=== PATIENT | female | born 1995 | race African-American/Black ===

== ENCOUNTER 2017-09-15 11:27 | Emergency (ER) | payer MEDICAID ==
[2017-09-15 11:38] VITALS: BP 106/54
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
== END 2017-09-15 13:20 | disposition home or self-care (01) ==
LOC: UCEAST 11:27
DX: S80.212A Abrasion, left knee, initial encounter (principal); S80.211A Abrasion, right knee, initial encounter; M25.562 Pain in left knee; M25.561 Pain in right knee; V29.9XXA Motorcycle rider (driver) (passenger) injured in unspecified traffic accident, initial encounter; Y93.9 Activity, unspecified; Z91.09 Other allergy status, other than to drugs and biological substances; Y92.9 Unspecified place or not applicable
CPT/HCPCS: 99212; G0463

== ENCOUNTER 2017-12-04 14:24 | Emergency (ER) | payer MEDICAID ==
[2017-12-04 14:45] VITALS: BP 137/87
--- NOTE | 2017-12-04 15:49 | UC ---
Complaint Female HPI - HPI Summary HPI Summary: pt uses nuvaring continuously (does not skip a week). she started having vaginal bleeding 3 weeks ago and hasn't ever stopped. occasional abd cramping. is monogomous with . has not had Nuvaring in for 3 weeks - History Of Current Complaint Chief Complaint: UCGU Stated Complaint: PERSONAL Time Seen by Provider: 12/04/17 15:39 Hx Obtained From: Patient Hx Last Menstrual Period: one month ago ?: No Onset/Duration: Gradual Onset Timing: Constant Severity Initially: Mild Severity Currently: Moderate Pain Intensity: 5 Associated Signs And Symptoms: Positive: Vaginal Bleeding/Discharge - Allergies/Home Medications Allergies/Adverse Reactions: Allergies Allergy/AdvReac Type Severity Reaction Status Date / Time horse dander Allergy resp Verified 09/23/17 12:32 distress Home Medications: Home Medications Ibuprofen TAB* [Motrin TAB* 800 MG] 1 dose PO ONCE 12/04/17 [History Confirmed 12/04/17] PMH/Surg Hx/FS Hx/Imm Hx Previously Healthy: Yes - Surgical History Surgical History: Yes Surgery Procedure, Year, and Place: Sinus surgery. WISDOM TEETH - Family History Known Family History: Negative: Diabetes - Social History Occupation: Employed Full-time Lives: With Family Alcohol Use: Occasionally Substance Use Type: None Smoking Status (MU): Current Some Day Smoker - Immunization History Most Recent Influenza Vaccination: r Vaccination Up to Date: Yes Review of Systems Constitutional: Negative Skin: Negative Respiratory: Negative Cardiovascular: Negative Genitourinary: Negative Neurological: Negative All Other Systems Reviewed And Are Negative: Yes Physical Exam Triage Information Reviewed: Yes Appearance: Well-Appearing, No Pain Distress, Well-Nourished Vital Signs: Initial Vital Signs Temp 98.6 F 12/04/17 14:41 Pulse 119 12/04/17 14:41 Resp 18 12/04/17 14:41 BP 137/87 12/04/17 14:41 Pulse Ox 97 12/04/17 14:41 Vital Signs Reviewed: Yes Respiratory Exam: Normal Cardiovascular Exam: Normal Abdomen Description: Positive: Nontender, No Organomegaly, Soft Pelvic Exam: Positive: Speculum Exam Normal, Bimanual Exam Normal, Active Bleeding - small amount. Negative: Discharge, Lesions, Tender w/ Cervical Motion, Tender Adnexa Neurological Exam: Normal Psychological Exam: Normal Skin Exam: Normal Complaint Female Dx - Differential Dx/Diagnosis Differential Diagnosis/HQI/PQRI: Ectopic, Ovarian Cyst, , Sexually Transmitted Disease, Urinary Tract Infection Provider Diagnoses: vaginal bleeding Discharge - Sign-Out/Discharge Documenting (check all that apply): Patient Departure All imaging exams completed and their final reports reviewed: No Studies - Discharge Plan Condition: Good Disposition: HOME Patient Education Materials: Dysfunctional Uterine Bleeding (ED) Referrals: No Primary Care Phys,NOPCP [Primary Care Provider] - Additional Instructions: follow up with [facility] week Follow-up with cultures taken from today's exam Report to ER if symptoms worsen - Billing Disposition and Condition Condition: GOOD Disposition: Home - Attestation Statements Provider Attestation: Per institutional requirements, I have reviewed the chart, however, I was not consulted specifically or made aware of this patient by the midlevel provider. I did not personally evaluate, interact with , or disposition this patient.
--- NOTE | 2017-12-06 19:37 | UC ---
- Progress Note Progress Note: Pt with + Gardnerella sent flagyl to pharmacy please call pt and update alcohol precaution - no ETOH 72 hours before or after med Ljj 12/06/2017 7:37 Discharge - Sign-Out/Discharge Documenting (check all that apply): Post-Discharge Follow Up All imaging exams completed and their final reports reviewed: No Studies - Discharge Plan Condition: Good Disposition: HOME Prescriptions: metroNIDAZOLE [Flagyl] 500 mg PO BID #14 tablet Patient Education Materials: Dysfunctional Uterine Bleeding (ED) Referrals: No Primary Care Phys,NOPCP [Primary Care Provider] - Additional Instructions: follow [facility] with [facility] week Follow-up with cultures taken from today's exam Report to ER if symptoms worsen - Billing Disposition and Condition Condition: GOOD Disposition: Home
== END 2017-12-04 16:15 | disposition home or self-care (01) ==
LOC: UCEAST 14:24
DX: N93.9 Abnormal uterine and vaginal bleeding, unspecified (principal); Z72.0 Tobacco use
CPT/HCPCS: 81003; 84702; 87480; 87491; 87510; 87591; 87661; 99212; G0463

== ENCOUNTER 2018-06-09 15:26 | Emergency (ER) | payer MEDICAID, OTHER ==
[2018-06-09 17:00] VITALS: BP 110/60
--- NOTE | 2018-06-09 17:40 | UC ---
Respiratory Complaint HPI - HPI Summary HPI Summary: 23y/o female presents to the urgent care c/o productive cough, [place]IV[place], nasal congestion w/ green nasal discharge, body aches and chills for the past week. Pt symptoms started w/ a common cold and she has been taking Nyquil and Dayquil Po to alleviate symptoms. Pt w/ PMHX of chronic sinusitis s/p 2 sinus surgeries. She recently was Tx for sinusitis by his PCP about 2 weeks ago with Amoxicillin. Then symptoms returned. She feels now her chest is more congested associated w/ body aches, LIVINGSTON. She has used her Albuterol inhaler at night to alleviate broncospasm. Denies SOB, wheezing, abdominal pain, fever, N/V/D. - History of Current Complaint Chief Complaint: UCRespiratory Stated Complaint: COUGH Time Seen by Provider: 06/09/18 17:33 Hx Obtained From: Patient Hx Last Menstrual Period: 06/02/2018 ?: No Onset/Duration: Gradual Onset, Lasting Weeks - 1 week, Still Present, Worse Since - 3 days Timing: Intermittent Episodes Severity Initially: Mild Severity Currently: Mild Pain Intensity: 4 Pain Scale Used: 0-10 Numeric Character: Cough: Productive, Sputum Description: - green Aggravating Factors: Recumbent Position Alleviating Factors: Bronchodilator, OTC Meds Associated Signs And Symptoms: Positive: Chills, URI, Nasal Congestion, Sinus Discomfort. Negative: Dyspnea, Fever, Wheezing - Risk Factors Pulmonary Embolism Risk Factors: Negative Cardiac Risk Factors: Negative Pseudomonas Risk Factors: Negative Tuberculosis Risk Factors: Negative - Allergies/Home Medications Allergies/Adverse Reactions: Allergies Allergy/AdvReac Type Severity Reaction Status Date / Time horse dander Allergy resp Verified 06/09/18 17:00 distress Home Medications: Home Medications D-Methorphan/PE/Acetaminophen [Day Time Cold-Flu Relief Liq] 06/09/18 [History] PMH/Surg Hx/FS Hx/Imm Hx Previously Healthy: Yes Other Respiratory History: chronic sinusitis - Surgical History Surgical History: Yes Surgery Procedure, Year, and Place: Sinus surgery. WISDOM TEETH - Family History Known Family History: Positive: Hypertension, Diabetes - Social History Occupation: Employed Full-time Lives: With Family Alcohol Use: Occasionally Substance Use Type: None Smoking Status (MU): Current Some Day Smoker - Immunization History Most Recent Influenza Vaccination: r Vaccination Up to Date: Yes Review of Systems All Other Systems Reviewed And Are Negative: Yes Constitutional: Positive: Chills, Other - body aches Skin: Positive: Negative Eyes: Positive: Negative ENT: Positive: Nasal Discharge - green, Sinus Congestion, Sinus Pain/Tenderness Respiratory: Positive: Cough - productive w/ green phlegm Cardiovascular: Positive: Negative Gastrointestinal: Positive: Negative Genitourinary: Positive: Negative Motor: Positive: Negative Neurovascular: Positive: Negative Musculoskeletal: Positive: Myalgia Neurological: Positive: Headache Psychological: Positive: Negative Is Patient Immunocompromised?: No Physical Exam - Summary Physical Exam Summary: Vital Signs Reviewed: Yes General: well developed, well nourished female sitting in the examining table w/ o any apparent distress Eyes: Positive: Conjunctiva Clear - PERRLA, EOMI, fundi grossly normal ENT: Positive: Normal ENT inspection, Hearing grossly normal, Pharynx normal, Nasal congestion - edematous and erythematous nasal mucosa, Nasal drainage - yellowish drainage, TMs normal. Negative: Tonsillar swelling, Tonsillar exudate Neck: Positive: Supple, Nontender, No Lymphadenopathy Respiratory: no orthopnea or dyspnea. Able to speak in full sentences, no retractions or accessory muscle use, no tripod position, stridor, or head bobbing. Positive breath sounds bilaterally. scattered rhonchi on b/L lungs, no crackles or rales, no wheezes. Cardiovascular: Positive: RRR, No Murmur, Pulses Normal, Brisk Capillary Refill Abdomen Description: Positive: Nontender, No Organomegaly, Soft. Negative: CVA Tenderness (R), CVA Tenderness (L) Bowel Sounds: Positive: Present Musculoskeletal Exam: Normal Musculoskeletal: Positive: Strength Intact, ROM Intact, No Edema Neurological Exam: Normal Psychological Exam: Normal Skin Exam: Normal Triage Information Reviewed: Yes Vital Signs: Initial Vital Signs Temp 97.9 F 06/09/18 16:53 Pulse 76 06/09/18 16:53 Resp 18 06/09/18 16:53 BP 110/60 06/09/18 16:53 Pulse Ox 99 06/09/18 16:53 Respiratory Course/Dx - Course Course Of Treatment: 23y/o female presents to the urgent care c/o productive cough, [place]IV[place], nasal congestion w/ green nasal discharge, body aches and chills for the past week. Pt symptoms started w/ a common cold and she has been taking Nyquil and Dayquil Po to alleviate symptoms. Pt w/ PMHX of chronic sinusitis s/ p 2 sinus surgeries. She recently was Tx for sinusitis by his PCP about 2 weeks ago with Amoxicillin. Then symptoms returned. She feels now her chest is more congested associated w/ body aches, [place]. She has used her Albuterol inhaler at night to alleviate broncospasm. Denies SOB, wheezing, abdominal pain, fever, N/V /D. Hx obtained. Pt w/scattered rhonchi on b/L lungs, no crackles or rales, no wheezes on examination.Chest X-ray ordered:Impression: No acute cardiopulmonary disease observed.Pt with Acute bronchitis on examination. Pt Rx Z-michlele PO and advised to continue w/ Albuterol inhaler to alleviate bronchospasm. Pt advised to increase fluid intake and eat well. if not improvement or worsening of symptoms to return to the urgent care or f/u with PCP for further management. pt understood and agreed with plan of care. - Differential Dx/Diagnosis Differential Diagnosis/HQI/PQRI: Asthma, Bronchitis, Influenza, Lower Resp Infection, Sinusitis, Other - pneumonia Provider Diagnosis: Cough, Acute bronchitis Discharge - Sign-Out/Discharge Documenting (check all that apply): Patient Departure - d/c home All imaging exams completed and their final reports reviewed: No - Discharge Plan Condition: Stable Disposition: HOME Prescriptions: Azithromyxin MICHELLE (NF) [Z-Michelle (Zithromax) 250 mg tabs #6] 2 tab PO .TODAY, THEN 1 DAILY #6 tab Patient Education Materials: Acute Bronchitis (ED) Forms: *Work Release Referrals: Nette Wood MD [Primary Care Provider] - 3 Days Additional Instructions: 1-Please take full course of antibiotic to avoid resistance. 2-Please continue taking Dayquil PO and Nyquil PO to alleviate symptoms. Increase fluid intake, rest and eat well. 3- If symptoms do not improve or worsen or your develop SOB with fever and severe wheezing please go immediately to the ER further evaluation and treatment. 4- F/u with your PCP in 2-3 days for further management if not improvement of symptoms. - Billing Disposition and Condition Condition: STABLE Disposition: Home
[2018-06-09 18:08] LABS: Influenza A Molecular NEGATIVE (Negative); Influenza B Molecular NEGATIVE (Negative)
--- NOTE | 2018-06-10 08:14 | UC ---
- Progress Note Progress Note: CXR: IMPRESSION: #. No evidence for acute intrathoracic disease. R0 No change in plan of care Course/Dx - Diagnoses Provider Diagnoses: Cough Discharge - Sign-Out/Discharge Documenting (check all that apply): Post-Discharge Follow Up All imaging exams completed and their final reports reviewed: Yes - Discharge Plan Condition: Stable Disposition: HOME Prescriptions: Azithromyxin MICHELLE (NF) [Z-Michelle (Zithromax) 250 mg tabs #6] 2 tab PO .TODAY, THEN 1 DAILY #6 tab Patient Education Materials: Acute Bronchitis (ED) Forms: *Work Release Referrals: Nette Wood MD [Primary Care Provider] - 3 Days Additional Instructions: 1-Please take full course of antibiotic to avoid resistance. 2-Please continue taking Dayquil PO and Nyquil to alleviate symptoms. Increase fluid intake, rest and eat well. 3- If symptoms do not improve or worsen or your develop SOB with fever and severe wheezing please go immediately to the ER further evaluation and treatment. 4- F/u with your PCP in 2-3 days for further management if not improvement of symptoms. - Billing Disposition and Condition Condition: STABLE Disposition: Home
== END 2018-06-09 18:30 | disposition home or self-care (01) ==
LOC: UCEAST 15:26
DX: J20.9 Acute bronchitis, unspecified (principal); R05 Cough; R09.81 Nasal congestion; R09.89 Other specified symptoms and signs involving the circulatory and respiratory systems; R51 Headache; F17.200 Nicotine dependence, unspecified, uncomplicated; Z91.09 Other allergy status, other than to drugs and biological substances
CPT/HCPCS: 71046; 99212; G0463

== ENCOUNTER 2018-12-02 11:12 | Emergency (ER) | payer OTHER ==
--- NOTE | 2018-12-02 11:49 | ED ---
Headache - HPI Summary HPI Summary: Patient is a 23 y/o F presenting to [facility] with complaints of LIVINGSTON and nausea. She states that on 11/30/18 at around 1600, after she was getting home from work, she had onset of LIVINGSTON, stating it felt as if her head was, "splitting into pieces ". Patient thought she was dehydrated and drank water. Sx persisted, and an hour after LIVINGSTON onset, patient took some Advil. Shortly after this, the patient states she began to vomit "aggressively" and continuously. Patient went to [facility] urgent care. Per medical records, patient was given Toradol, Reglan, Benadryl, and 1 L NS. She was discharged to home and diagnosed with a migraine. The following morning, 12/01/18, patient states that she had a minor LIVINGSTON still. She took some Tylenol during the day and went to bed in the evening. This morning, , patient states that LIVINGSTON severity worsened. Patient states that the LIVINGSTON is at the top middle area of her head. No radiation of pain is noted. On triage, pain is rated 4/10. She states that she has been nauseous today but has not vomited. Patient notes onset of diarrhea this morning, 12/02/18. Patient did have soup and crackers this morning, 12/02/18. Patient notes Hx of sinus pressure headaches, but states that the location of pain for these HAs has been at the frontal area. Fever, neck pain, abdominal pain are all denied. She states that she has had increased frequency of urination, but she relates this to the increased amount of water she has been drinking. The patient otherwise denies any urinary Sx. She notes that she is photophobic and states that straining her eyes aggravates Sx. Patient is on her period currently and states that it started around a week ago. She takes Nuvaring for control. PMHx of Lyme disease and allergies is reported. She notes that she used to be on an allergy pill but is not currently as she frequently forgot to take it. FMHx of diabetes and cardiovascular disease. Mother has Hx of migraines. PSHx of sinus surgery x2 and wisdom teeth removal. Patient states she is a former smoker but smokes "socially" around once per month. Rare alcohol usage is endorsed, she denies drug usage. Vitals in room are BP 116/92, o2 100, pulse 91. Home medications and allergies are reviewed. Patient notes that she is on her phone frequently. She states she is allergic to horses. Patient's mother is with patient in room. - History Of Current Complaint Chief Complaint: EDHeadache Stated Complaint: MIGRAINE/NAUSEA PER PT Time Seen by Provider: 12/02/18 11:17 Hx Obtained From: Patient Hx Last Menstrual Period: NOW Onset/Duration: Started hours ago - diarrhea onset in morning, 12/02, Started days ago - LIVINGSTON, N/V onset 11/30, Still Present Currently Pain Is: Current Pain Scale(0-10)=, Moderate - on triage, pain rated 4 /10 Timing: Constant, Hours - diarrhea onset in morning, 12/02, Days - LIVINGSTON, N/V onset 11/30 Location of Headache: Other: - top middle area of head Radiates to: no radiation of pain Aggravating Factor: Bright Lights, Other - straining eyes Associated Signs And Symptoms: Nausea, Vomiting, Other (Noted In Comments) - positive - diarrhea, increased frequency of urination that is attributed to increased intake of water; negative - fever, neck pain, abdominal pain, urinary Sx - Allergies/Home Medications Allergies/Adverse Reactions: Allergies Allergy/AdvReac Type Severity Reaction Status Date / Time horse dander Allergy resp Verified 11/30/18 19:36 distress PMH/Surg Hx/FS Hx/Imm Hx Endocrine/Hematology History: Denies: Hx Diabetes, Hx Thyroid Disease Cardiovascular History: Denies: Hx Hypercholesterolemia, Hx Hypertension, Hx Pacemaker/ICD, Hx Peripheral Vascular Disease Respiratory History: Reports: Hx Asthma - exercise or cold induced Denies: Hx Chronic Obstructive Pulmonary Disease (COPD) GI History: Denies: Hx Ulcer History: Denies: Hx Renal Disease Musculoskeletal History: Denies: Hx Arthritis, Hx Osteoporosis Sensory History: Denies: Hx Cataracts, Hx Contacts or Glasses, Hx Glaucoma, Hx Hearing Aid Opthamlomology History: Denies: Hx Cataracts, Hx Contacts or Glasses, Hx Glaucoma Neurological History: Reports: Hx Headaches Denies: Hx Seizures, Hx Transient Ischemic Attacks (TIA) Psychiatric History: Denies: Hx Anxiety, Hx Depression, Hx Panic Disorder - Surgical History Surgery Procedure, Year, and Place: Sinus surgery x2. WISDOM TEETH REMOVAL Infectious Disease History: No Infectious Disease History: Denies: Hx Clostridium Difficile, Hx Hepatitis, Hx Human Immunodeficiency Virus (HIV), Hx of Known/Suspected MRSA, Hx Shingles, Hx Tuberculosis, Hx Known/ Suspected VRE, Hx Known/Suspected VRSA, History Other Infectious Disease, Traveled Outside the [place] in Last 30 Days - Family History Known Family History: Positive: Hypertension, Diabetes, Other - FMHx of migraines, mother - Social History Alcohol Use: Rare Substance Use Type: Reports: None Smoking Status (MU): Former Smoker Type: Cigarettes Amount Used/How Often: 1 CIG/DAY Review of Systems Negative: Fever Positive: Photophobia Positive: Vomiting, Diarrhea, Nausea. Negative: Abdominal Pain Positive: no symptoms reported - no urinary Sx reported , frequency - increased frequency of urinartion that is related to patient's increased water intake Musculoskeletal: Other - negative - neck pain Positive: Headache All Other Systems Reviewed And Are Negative: Yes Physical Exam - Summary Physical Exam Summary: General: Well-nourished, Well-nourished female. No acute distress. HEENT: Normocephalic, Atraumatic. Eyes: conjuctiva normal, PERRL. Ears: TMs within normal limits. Nares: (-) discharge, (-) erythema. Oropharynx: clear, mucous membranes moist, (-) exudates. Neck: soft, FROM, (-) lymphadenopathy, (-) thyromegaly, (-) JVD. Cardiovascular: normal sinus rhythm, (-) murmur. Respiratory: clear to auscultation bilaterally (-) wheezes, (-) rales, (-) rhonchi. Abdomen: soft, non-tender, non-distended, (-) organomegaly, normal bowel sounds. Neuro: Alert and oriented x3, no focal deficits. Extremities: no edema. Skin: warm, dry, (-) rash. Psychiatric: mood normal, affect normal. Triage Information Reviewed: Yes Vital Signs On Initial Exam: Initial Vitals Temp Pulse Resp BP Pulse Ox 98.9 F 90 16 142/85 100 12/02/18 11:14 12/02/18 11:14 12/02/18 11:14 12/02/18 11:14 12/02/18 11:14 Vital Signs Reviewed: Yes Diagnostics - Vital Signs Vital Signs Temp Pulse Resp BP Pulse Ox 12/02/18 11:14 98.9 F 90 16 142/85 100 - Laboratory Result Diagrams: 12/02/18 12:06 12/02/18 12:06 Lab Statement: Any lab studies that have been ordered have been reviewed, and results considered in the medical decision making process. Re-Evaluation - Re-Evaluation First Eval Re-Evaluation Time: 12:45 Change: Improved Comment: Patient states that she is feeling slightly better at this time. She is currently resting. Second Eval Re-Evaluation Time: 13:25 Change: Improved Comment: I have discussed results with patient and LIVINGSTON is improved. Discussed Sx that warrant immediate return to ED. Headache Course/Dx - Course Course Of Treatment: Patient is a 23 y/o F presenting to ED with complaints of LIVINGST[place], N/V and new onset diarrhea. Physical exam is unremarkable. Bloodwork is unremarkable for any abnormalities. During ED course, patient received 1 L NS, Benadryl 50 mg IV, Toradol 15 mg IV, Reglan 10 mg IV, and Zofran 4 mg IV. Patient's Sx are improved after medications. She will be discharged to home and is advised to rest and drink fluids as tolerated. Patient advised to follow up with PCP within three days and to return to ED for any new or worsening symptoms. Patient is agreeable with this plan. - Diagnoses Provider Diagnoses: Headache, Gastroenteritis Discharge ED - Sign-Out/Discharge Documenting (check all that apply): Patient Departure - discharge Patient Received Moderate/Deep Sedation with Procedure: No - Discharge Plan Condition: Stable Disposition: HOME Patient Education Materials: Gastroenteritis (ED), General Headache (ED) Referrals: Nette Wood MD [Primary Care Provider] - 3 Days Additional Instructions: Please follow up with primary care physician within three days. Please return to ED for any new or worsening symptoms. - Billing Disposition and Condition Condition: STABLE Disposition: Home - Attestation Statements Document Initiated by Scribe: Yes Documenting Scribe: GRIFFIN CORDOVA Provider For Whom Pearl is Documenting (Include Credential): ALYCE BELL MD Scribe Attestation: GRIFFIN Blair, scribed for ALYCE BELL MD on 12/02/18 at 1428. Scribe Documentation Reviewed: Yes Provider Attestation: The documentation as recorded by the adriannaibGRIFFIN cisneros accurately reflects the service I personally performed and the decisions made by me, ALYCE BELL MD Status of Scribe Document: Viewed
[2018-12-02] MEDS ORDERED: diPHENhydraMINE IV* 50 MG/ML 1 ml VIAL (BENADRYL) IV ONE (11:52)
[2018-12-02] MEDS ORDERED: Metoclopramide IV* 5 MG/ML 2 ML VIAL IV ONE (11:52)
[2018-12-02] MEDS ORDERED: Ketorolac INJ* 30 MG/ML 1 ML VIAL IV ONE (11:52)
[2018-12-02] MEDS ORDERED: NS 0.9% 1000 ML** 1,000 ML IV ONE (11:52)
[2018-12-02] MEDS ORDERED: Ondansetron INJ* 2 MG/ML VIAL IV ONE (11:52)
[2018-12-02 12:14] LABS: ABS Basophils 0.1 10^3/ul (0-0.2); ABS Eosinophils 0.3 10^3/ul (0-0.6); ABS Lymphocytes 1.7 10^3/ul (1.0-4.8); ABS Monocytes 0.4 10^3/ul (0-0.8); ABS Neutrophils 5.5 10^3/ul (1.5-7.7); Eosinophil % 3.5 %; Hematocrit 40 % (35-47); Hemoglobin 13.2 g/dL (12.0-16.0); Lymphocyte % 20.9 %; Mean Corpuscular HGB Conc 33 g/dL (31-36); Mean Corpuscular Hemoglobin 29 pg (27-31); Mean Corpuscular Volume 87 fL (80-97); Mean Platelet Volume 8.4 fL (7.4-10.4); Platelet Count 235 10^3/uL (150-450); Red Blood Count 4.58 10^6 /uL (3.70-4.87); Red Cell Distribution Width 13 % (10-15)
[2018-12-02 12:32] LABS: ALT 17 U/L (7-52); AST 18 U/L (13-39); Albumin 4.2 g/dL (3.2-5.2); Albumin/Globulin Ratio 1.8 (1-3); Alkaline Phosphatase 62 U/L (34-104); Anion Gap 6 mmol/L (2-11); BUN/Creatinine Ratio 12.2 (8-20); Blood Urea Nitrogen 9 mg/dL (6-24); CO2 Carbon Dioxide 24 mmol/L (22-32); Calcium 9.4 mg/dL (8.6-10.3); Chloride 108 mmol/L (101-111); EGFR African American 119.9 (>60); EGFR Non-African American 99.1 (>60); Globulin 2.4 g/dL (2-4); Glucose 97 mg/dL (70-100); Potassium 3.5 mmol/L (3.5-5.0); Sodium 138 mmol/L (135-145); Total Protein 6.6 g/dL (6.4-8.9)
[2018-12-02 12:38] LABS: HCG Pregnancy < 0.60 mIU/mL
[2018-12-02 13:24] LABS: Erythrocyte Sed Rate 7 mm/Hr (0-19)
[2018-12-02 13:42] VITALS: BP 125/86
== END 2018-12-02 13:43 | disposition home or self-care (01) ==
LOC: ED 11:12
DX: R51 Headache (principal); K52.9 Noninfective gastroenteritis and colitis, unspecified; J45.909 Unspecified asthma, uncomplicated; Z87.891 Personal history of nicotine dependence
CPT/HCPCS: 36415; 80053; 83605; 84702; 85025; 85652; 96361; 96374; 96375; 99282; J1200; J1885; J2405; J2765

== ENCOUNTER 2019-03-13 16:09 | Emergency (ER) | payer SELFPAY ==
[2019-03-13] MEDS ORDERED: NS 0.9% 1000 ML** 1,000 ML BOLUS ONE (16:42)
[2019-03-13] MEDS ORDERED: Ondansetron INJ* 2 MG/ML VIAL IV ONE (16:43)
--- NOTE | 2019-03-13 16:43 | UC ---
Abdominal Pain Female HPI - HPI Summary HPI Summary: 24 yo female with the onset on n/vx10/diarrrhea x 4 since this AM no f/c some flank pain from vomitng and dry heaves no UTI symptoms feels light headed - History of Current Complaint Chief Complaint: UCGeneralIllness Stated Complaint: VOMITING Time Seen by Provider: 03/13/19 16:24 Hx Obtained From: Patient Hx Last Menstrual Period: Patient states she uses the pill and condoms Onset/Duration: Sudden Onset, Lasting Hours Timing: Constant Severity Initially: Mild Severity Currently: Moderate Pain Intensity: 8 Pain Scale Used: 0-10 Numeric Location: Other - flans Character: Cramping Aggravating Factor(s): Nothing Alleviating Factor(s): Nothing Associated Signs and Symptoms: Positive: Decreased Appetite, Nausea, Vomiting, Diarrhea. Negative: Diaphoresis, Fever, Cough, Chest Pain, Dizzy, Back Pain, Constipation, Blood in Stool, Urinary Symptoms, Vaginal Bleeding, Vaginal Discharge Allergies/Adverse Reactions: Allergies Allergy/AdvReac Type Severity Reaction Status Date / Time horse dander Allergy resp Verified 11/30/18 19:36 distress Home Medications: Home Medications Control 03/13/19 [History] PMH/Surg Hx/FS Hx/Imm Hx Previously Healthy: Yes - Surgical History Surgical History: Yes Surgery Procedure, Year, and Place: Sinus surgery x2. WISDOM TEETH REMOVAL - Family History Known Family History: Positive: Hypertension, Diabetes, Other - FMHx of migraines, mother - Social History Alcohol Use: Rare Substance Use Type: None Smoking Status (MU): Former Smoker Type: Cigarettes Amount Used/How Often: 1 CIG/DAY - Immunization History Most Recent Influenza Vaccination: r Vaccination Up to Date: Yes Review of Systems All Other Systems Reviewed And Are Negative: Yes Constitutional: Positive: Fatigue Skin: Positive: Negative Eyes: Positive: Negative ENT: Positive: Negative Respiratory: Positive: Negative Gastrointestinal: Positive: Vomiting, Diarrhea, Nausea, Other - flank pain Genitourinary: Positive: Negative Motor: Positive: Negative Neurovascular: Positive: Negative Musculoskeletal: Positive: Negative Neurological: Positive: Negative Psychological: Positive: Negative Physical Exam Triage Information Reviewed: Yes Appearance: Well-Appearing, No Pain Distress, Well-Nourished Vital Signs: Initial Vital Signs Temp 98.1 F 03/13/19 16:14 Pulse 106 03/13/19 16:14 Resp 18 12/10/19 16:14 BP 133/86 03/13/19 16:14 Pulse Ox 99 03/13/19 16:14 Vital Signs Reviewed: Yes Eyes: Positive: Conjunctiva Clear ENT: Positive: Hearing grossly normal, Uvula midline, Other - dry mucous membranes. Negative: Nasal congestion, Nasal drainage, Tonsillar swelling, Tonsillar exudate, Trismus, Muffled voice, Hoarse voice Neck: Positive: Supple, Nontender Respiratory: Positive: Lungs clear, Normal breath sounds, No respiratory distress Cardiovascular: Positive: RRR, No Murmur Abdomen Description: Positive: Nontender, No Organomegaly, Soft. Negative: CVA Tenderness (R), CVA Tenderness (L) Bowel Sounds: Positive: Present Musculoskeletal: Positive: ROM Intact, No Edema Neurological: Positive: Alert Psychological Exam: Normal Skin Exam: Normal Re-Evaluation - Re-Evaluation First Eval Re-Evaluation Time: 17:21 Change: Improved - able to provide urine specimen, nausea gone, pain persists Second Eval Re-Evaluation Time: 18:01 Change: Improved - still no nausea/tolerating clear liquids/pain 5/10 Abd Pain Female Course/Dx - Differential Dx/Diagnosis Provider Diagnosis: Gastroenteritis Discharge ED - Sign-Out/Discharge Documenting (check all that apply): Patient Departure All imaging exams completed and their final reports reviewed: No Studies - Discharge Plan Condition: Stable Disposition: HOME Patient Education Materials: Gastroenteritis (ED) Referrals: Nette Wood MD [Primary Care Provider] - 2 Days (if not better) Additional Instructions: A urine culture is pending would stick with clear liquids today tomorrow slowly try to advance diet recheck for new or worsening symptoms recheck tomorrow if not markedly improved - Billing Disposition and Condition Condition: STABLE Disposition: Home
[2019-03-13 16:45] LABS: Influenza A Molecular NEGATIVE (Negative); Influenza B Molecular NEGATIVE (Negative)
[2019-03-13] MEDS ORDERED: Ketorolac INJ* 30 MG/ML 1 ML VIAL IV ONE (17:22)
[2019-03-13 17:55] VITALS: BP 135/72
[2019-03-13] MEDS ORDERED: Ondansetron ODT TAB* 4 MG PO ONE (17:58)
[2019-03-13] MEDS ORDERED: Acetaminophen TAB* 325 MG PO ONE (17:58)
== END 2019-03-13 18:20 | disposition home or self-care (01) ==
LOC: UCEAST 16:09
DX: K52.9 Noninfective gastroenteritis and colitis, unspecified (principal); Z87.891 Personal history of nicotine dependence; Z91.09 Other allergy status, other than to drugs and biological substances
CPT/HCPCS: 81003; 84702; 87086; 96361; 96374; 96375; 99212; A9270-GY; G0463; J1885; J2405

== ENCOUNTER 2023-11-30 14:05 | Inpatient (IN) ==
[2023-11-30] MEDS ORDERED: Lidocaine 1% VIAL 10 MG/ML 30 ML VIAL INJ PRN (16:42)
[2023-11-30] MEDS: Lactated Ringers 1000 ml BAG 1,000 ML IV ONE (17:16)
[2023-11-30] MEDS ORDERED: Lidocaine 1.5% EPI 1:200,000 30 ML SDV ONE (17:32)
[2023-11-30 17:37] LABS: ABS Eosinophils 0.2 10^3/uL (0.0-0.5); ABS Lymphocytes 1.6 10^3/uL (1.0-4.8); ABS Monocytes 1.1 10^3/uL (0.0-0.9); ABS Neutrophils 9.1 10^3/uL (1.5-7.6); Hematocrit 40.7 % (35-45); Hemoglobin 13.3 g/dL (11.5-14.3); Lymphocyte % 13.3 %; Mean Corpuscular Hemoglobin 28.6 pg (27-33); Mean Corpuscular Hgb Conc 32.7 g/dL (31-36); Mean Corpuscular Volume 87.2 fL (80-97); Mean Platelet Volume 9.9 fL (7.5-11.2); Platelet Count 230 10^3/uL (150-450); Red Blood Count 4.67 10^6/uL (3.63-4.92); Red Cell Distribution Width 13.9 % (12-17); White Blood Count 12.1 10^3/uL (3.8-11.8)
[2023-11-30 17:57] LABS: Urine Benzodiazepine Screen None Detected (None Detect); Urine Cannabinoids Screen None Detected (None Detect); Urine Opiates Screen None Detected (None Detect)
[2023-11-30] MEDS: Lactated Ringers 1000 ml BAG 1,000 ML IV SCH (18:15)
[2023-11-30] MEDS: OBEPIDURAL (200 ML) 200 ML EPIDURAL ONE (18:15)
[2023-11-30] MEDS ORDERED: Lactated Ringers 1000 ml BAG 1,000 ML IV ONE (18:23)
[2023-11-30] MEDS ORDERED: Phenylephrine 40 mcg/mL 10mL (400mcg) SYRINGE IV PUSH PRN (18:23)
[2023-11-30] MEDS ORDERED: Sodium Citrate/Citric Acid LIQ 15 ML UDC PO PRN (18:23)
[2023-11-30] MEDS: Phenylephrine 40 mcg/mL 10mL (400mcg) SYRINGE IV PUSH PRN (18:44)
[2023-11-30] MEDS ORDERED: Lactated Ringers 1000 ml BAG 1,000 ML IV SCH (19:00)
[2023-11-30] MEDS: Oxytocin in LR 20,000 MILLI.UNIT/1,000 ML BAG IV SCH (20:00)
[2023-11-30 20:13] LABS: Urine Appearance Clear; Urine Bilirubin Negative (Negative); Urine Blood 1+ (Negative); Urine Color Yellow; Urine Glucose Negative (Negative); Urine Ketones 2+ (Negative); Urine Nitrite Negative (Negative); Urine Protein 1+ (>=30 mg/dL) (Negative); Urine Specific Gravity 1.014 (1.002-1.030); Urine Urobilinogen Negative (Negative); Urine pH 7.5 (5.0-8.0)
[2023-11-30 20:35] LABS: Urine Bacteria 1+ /HPF (Absent); Urine Granular Casts Present /LPF (Absent); Urine Red Blood Cell 3+(>10/hpf) /HPF (0-Trace); Urine Squamous Epithelial Cell Present /HPF (Absent); Urine White Blood Cell Trace(0-5/hpf) /HPF (0-Trace)
[2023-12-01] MEDS: OBEPIDURAL (200 ML) 200 ML EPIDURAL SCH (05:25)
[2023-12-01] MEDS: Methylergonovine 0.2 mg AMPULE 1 ml AMP ONE (06:15)
[2023-12-01] MEDS ORDERED: Oxytocin in LR 20,000 MILLI.UNIT/1,000 ML BAG IV SCH (06:25)
[2023-12-01] MEDS ORDERED: Lactated Ringers 1000 ml BAG 1,000 ML IV SCH (07:00)
[2023-12-01] MEDS: Ondansetron 4 mg VIAL 2 MG/ML 2 ml VIAL IV ONE (08:22)
[2023-12-01] MEDS: Witch Hazel PAD JAR TOPICAL PRN (10:19)
[2023-12-01] MEDS: Dibucaine 1% OINT 28.35 GM TUBE PR PRN (10:19)
[2023-12-01] MEDS: Methylergonovine 0.2 mg AMPULE 1 ml AMP IM ONE (10:46)
[2023-12-02 07:02] LABS: ABS Basophils 0.1 10^3/uL (0.0-0.1); ABS Eosinophils 0.3 10^3/uL (0.0-0.5); ABS Lymphocytes 2.3 10^3/uL (1.0-4.8); ABS Monocytes 1.2 10^3/uL (0.0-0.9); ABS Neutrophils 8.6 10^3/uL (1.5-7.6); Eosinophil % 2.5 %; Hematocrit 32.7 % (35-45); Hemoglobin 10.9 g/dL (11.5-14.3); Lymphocyte % 18.7 %; Mean Corpuscular Hemoglobin 29.3 pg (27-33); Mean Corpuscular Hgb Conc 33.3 g/dL (31-36); Mean Corpuscular Volume 87.8 fL (80-97); Mean Platelet Volume 9.7 fL (7.5-11.2); Platelet Count 186 10^3/uL (150-450); Red Blood Count 3.73 10^6/uL (3.63-4.92); White Blood Count 12.5 10^3/uL (3.8-11.8)
[2023-12-03 08:32] VITALS: BP 127/83
[2023-12-04 13:05] LABS: Hb A 97.3 % (95.8-98.0); Hb A2 2.7 % (2.0-3.3)
== END 2023-12-03 13:04 | disposition home or self-care (01) | DRG 560 ==
LOC: MCHOBOUT 14:05 → MCHOB 16:37
PROVIDERS: ADMIT Midwife; ATTEND Midwife